=== PATIENT | male | born 1950 | race Two or more races ===

== ENCOUNTER 2018-02-14 11:11 | Outpatient (CLI) | payer OTHER | END 2018-02-14 11:19 | disposition home or self-care (01) | LOC: SONOGRAMA 11:11 | DX: E04.1 Nontoxic single thyroid nodule (principal) ==

== ENCOUNTER 2019-02-19 13:32 | Outpatient (CLI) | payer OTHER | END 2019-02-19 13:39 | disposition home or self-care (01) | LOC: SONOGRAMA 13:32 → MAMO-SONO 14:15 | DX: E04.1 Nontoxic single thyroid nodule (principal) ==

== ENCOUNTER 2025-04-06 12:26 | Outpatient (CLI) | payer OTHER | END 2025-04-06 12:32 | disposition home or self-care (01) | LOC: SONOGRAMA 12:26 | PROVIDERS: ATTEND Pathology Anatomic Pathology | DX: D34 Benign neoplasm of thyroid gland (principal); E07.89 Other specified disorders of thyroid; E04.2 Nontoxic multinodular goiter ==